=== PATIENT | male | born 1995 | race Caucasian/White ===

== ENCOUNTER 2017-12-25 08:39 | Day surgery (SDC) | payer MEDICAID ==
[~2017-12-25] VITALS: Ht 175.3 cm; Wt 102.1 kg
[2017-12-25] MEDS ORDERED: MIDAZOLAM HCL 2 MG/2 ML VIAL (VERSED) ONE (11:00)
[2017-12-25] MEDS ORDERED: DIPHENHYDRAMINE INJ 50 MG/ML VIAL ONE (11:00)
[2017-12-25] MEDS ORDERED: IOHEXOL 50 ML IV ONE (11:17)
[2017-12-25 12:30] VITALS: BP_SYST 129
[2017-12-25] MEDS ORDERED: MIDAZOLAM HCL 5 MG/5 ML VIAL IVP ONE (14:45)
[2017-12-25] MEDS ORDERED: DIPHENHYDRAMINE INJ 50 MG/ML VIAL IVP ONE (14:45)
== END 2017-12-25 12:45 | disposition home or self-care (01) ==
LOC: SDS 08:39
PROVIDERS: ATTEND Internal Medicine
DX: M51.16 Intervertebral disc disorders with radiculopathy, lumbar region (principal); M54.5 Low back pain; M79.1 Myalgia
CPT/HCPCS: 62323; 76000; J1200; J3465; J7120; Q9967

== ENCOUNTER 2018-08-06 11:08 | Day surgery (SDC) | payer MEDICAID ==
[~2018-08-06] VITALS: Ht 175.3 cm; Wt 95.7 kg
[2018-08-06] MEDS ORDERED: DIPHENHYDRAMINE INJ 50 MG/ML VIAL ONE (11:44)
[2018-08-06] MEDS ORDERED: MIDAZOLAM HCL 5 MG/5 ML VIAL ONE (11:44)
[2018-08-06] MEDS ORDERED: LIDOCAINE 2%, 20 ML MDV ONE (11:45)
[2018-08-06] MEDS ORDERED: BUPIVACAINE /PF 0.25% 30 ML VIAL INJ ONE (11:45)
[2018-08-06] MEDS ORDERED: IOHEXOL 300 mgI/mL, 50 mL INFUS..BTL IV ONE (11:45)
[2018-08-06] MEDS ORDERED: methylPREDNISolone ACETATE 80 MG/ML ONE (11:45)
[2018-08-06 12:45] VITALS: BP_SYST 96
== END 2018-08-06 13:55 | disposition home or self-care (01) ==
LOC: SDS 11:08
PROVIDERS: ATTEND Internal Medicine
DX: M51.16 Intervertebral disc disorders with radiculopathy, lumbar region (principal); M54.5 Low back pain; M79.10 Myalgia, unspecified site; G62.9 Polyneuropathy, unspecified
CPT/HCPCS: 62323; 76000; J1040; J1200; J2001; J2250; J3490; J7120; Q9967